=== PATIENT | male | born 1965 | race Caucasian/White ===

== ENCOUNTER 2018-05-25 18:05 | Emergency (ER) | payer OTHER ==
--- NOTE | 2018-05-25 18:44 | ED Physician Documentation ---
PD HPI CHEST PAIN - Stated complaint Stated Complaint: CP/SOA - Chief complaint Chief Complaint: Cardiac - History obtained from History obtained from: Patient - History of Present Illness Timing - onset: Other (Has been fatigued for months, Had w/u with his MD at [facility] and dx low vit D and B12. Has had on and off LUQ pain but severe today with sweats p napping x 1 hr.) Review of Systems Ten Systems: 10 systems reviewed and negative Constitutional: reports: Fatigue. denies: Fever, Chills, Weight Loss Cardiac: reports: Chest pain / pressure. denies: Palpitations Respiratory: denies: Dyspnea, Cough GI: reports: Abdominal Pain. denies: Nausea, Vomiting PD PAST MEDICAL HISTORY - Past Medical History Past Medical History: Yes Cardiovascular: CO Respiratory: None Endocrine/Autoimmune: HyPOthyroidism GI: Diverticulitis : None HEENT: None - Past Surgical History Past Surgical History: Yes General: Bowel surgery, Hiatal hernia repair Ortho: Knee replacement, Rotator cuff repair - Present Medications Home Medications: Ambulatory Orders Medication Instructions Recorded Confirmed Levothyroxine Sodium [Synthroid] 0 mcg PO DAILY 04/21/13 02/23/14 Oxycodone HCl/Acetaminophen 1 - 2 each PO Q6H PRN #15 tablet 02/23/14 [Percocet 5-325 mg Tablet] diazePAM [Valium] 5 - 10 mg PO TID PRN #15 tablet 02/23/14 predniSONE [Deltasone] 60 mg PO DAILY 5 Days tablet 02/23/14 - Allergies Allergies/Adverse Reactions: Allergies Allergy/AdvReac Type Severity Reaction Status Date / Time sulfamethoxazole AdvReac Intermediate Rash Verified 02/23/14 15:30 [From ] trimethoprim [From ] AdvReac Intermediate Rash Verified 02/23/14 15:30 - Social History Does the pt smoke?: Yes Smoking Status: Former smoker Does the pt drink ETOH?: No Does the pt have substance abuse?: Yes - Family History Family history: reports: Non contributory - Immunizations Immunizations are current?: No Immunizations: TDAP >10years/unknown PD ED PE NORMAL - Vitals Vital signs reviewed: Yes - General General: Alert and oriented X 3, No acute distress - HEENT HEENT: PERRL, EOMI - Neck Neck: Supple, no meningeal sign, No bony TTP - Cardiac Cardiac: RRR, No murmur - Respiratory Respiratory: No respiratory distress, Clear bilaterally - Abdomen Abdomen: Normal bowel sounds, Soft, Non tender - Back Back: No CVA TTP, No spinal TTP - Derm Derm: Normal color, Warm and dry - Extremities Extremities: No edema, No calf tenderness / cord - Neuro Neuro: Alert and oriented X 3, Normal speech - Psych Psych: Normal mood, Normal affect Results - Vitals Vitals: Vital Signs - 24 hr 05/25/18 05/25/18 05/25/18 18:08 18:37 20:10 Temperature 36.4 C L Heart Rate 86 88 74 Respiratory 16 18 15 Rate Blood Pressure 150/78 H 121/90 H 114/78 O2 Saturation 100 95 95 Oxygen O2 Source Room air - EKG (time done) 1813 Rate: Rate (enter#) (85) Rhythm: NSR, LAE [place]: Normal Intervals: Normal [place] QRS: Normal Ischemia: Normal ST segments Computer interpretation: Agree with computer - Labs Labs: Laboratory Tests 05/25/18 05/25/18 05/25/18 18:32 18:32 18:32 WBC 7.8 RBC 4.45 L Hgb 15.2 Hct 44.7 MCV 100.5 H MCH 34.2 H MCHC 34.0 RDW 13.8 Plt Count 266 MPV 8.3 Neut # (Auto) 3.9 Lymph # (Auto) 3.1 [place] # (Auto) 0.5 Eos # (Auto) 0.3 Baso # (Auto) 0.0 Absolute Nucleated RBC 0.00 Nucleated RBC % 0.0 Sodium 139 Potassium 4.2 Chloride 108 Carbon Dioxide 23 Anion Gap 8.0 BUN 15 Creatinine 1.3 H Estimated GFR (MDRD) 57 L Glucose 129 H Calcium 9.0 Total Bilirubin 0.3 AST 34 ALT 32 Alkaline Phosphatase 91 Total Creatine Kinase 139 CK-MB (CK-2) 2.8 Troponin I < 0.04 Total Protein 7.3 Albumin 3.9 Globulin 3.4 Albumin/Globulin Ratio 1.1 Lipase 42 05/25/18 20:35 WBC RBC Hgb Hct MCV MCH MCHC RDW Plt Count MPV Neut # (Auto) Lymph # (Auto) [place] # (Auto) Eos # (Auto) Baso # (Auto) Absolute Nucleated RBC Nucleated RBC % Sodium Potassium Chloride Carbon Dioxide Anion Gap BUN Creatinine Estimated GFR (MDRD) Glucose Calcium Total Bilirubin AST ALT Alkaline Phosphatase Total Creatine Kinase CK-MB (CK-2) Troponin I < 0.04 Total Protein Albumin Globulin Albumin/Globulin Ratio Lipase - Rads (name of study) 1v cHEST Radiology: EMP read contemporaneously (NAD) PD MEDICAL DECISION MAKING - ED course ED course: 53-year-old gentleman with left upper quadrant pain today, otherwise somewhat concerning for cardiac etiology but serial biomarkers and EKG are nonischemic. Departure - Departure Disposition: 01 Home, Self Care Clinical Impression: Chest pain Qualifiers: Chest pain type: unspecified Qualified Code(s): R07.9 - Chest pain, unspecified Condition: Good Record reviewed to determine appropriate education?: Yes Instructions: ED Chest Pain NonCardiac Comments: Return for new or worsening symptoms. Follow-up with your physician, discuss stress testing and follow-up.
[2018-05-25 18:53] LABS: BASOPHILS % (AUTO) 0.4 %; EOSINOPHILS # (AUTO) 0.3 10^3/uL (0.0-0.7); EOSINOPHILS % (AUTO) 3.9 %; HGB - HEMOGLOBIN 15.2 g/dL (14.0-18.0); LYMPHOCYTES # (AUTO) 3.1 10^3/uL (1.5-3.5); LYMPHOCYTES % (AUTO) 39.2 %; MEAN CORPUSCULAR HEMOGLOBIN 34.2 pg (27.0-31.0); MEAN CORPUSCULAR VOLUME 100.5 fL (80.0-94.0); MEAN PLATELET VOLUME 8.3 fL (7.4-11.4); MONOCYTES # (AUTO) 0.5 10^3/uL (0.0-1.0); MONOCYTES % (AUTO) 6.5 %; NEUTROPHILS # (AUTO) 3.9 10^3/uL (1.5-6.6); PLT - PLATELET COUNT 266 10^3/uL (130-450); RED BLOOD COUNT 4.45 10^6/uL (4.70-6.10); RED CELL DISTRIBUTION WIDTH 13.8 % (12.0-15.0); WHITE BLOOD COUNT 7.8 x10^3/uL (4.8-10.8)
--- NOTE | 2018-05-25 18:57 | XRAY Report ---
Reason: chest pain Procedure Date: 05/25/2018 Accession Number: [id number] / [id number] Procedure: XR - Chest 1 View X-Ray CPT Code: 02260 FULL RESULT: EXAM: CHEST RADIOGRAPHY EXAM DATE: 05/25/2018 06:27 PM. CLINICAL HISTORY: Chest pain. COMPARISON: CHEST 2 VIEW PA/LAT 04/21/2013 2:31 AM. TECHNIQUE: 1 view. FINDINGS: Lungs/Pleura: No focal opacities evident. No pleural effusion. No pneumothorax. Mediastinum: Within exam limitations, the cardiomediastinal contour is normal. Other: None. IMPRESSION: Normal single view chest. RADIA
[2018-05-25 19:04] LABS: ALBUMIN 3.9 g/dL (3.2-5.5); ALBUMIN/GLOBULIN RATIO 1.1 (1.0-2.2); BILIRUBIN,TOTAL 0.3 mg/dL (0.2-1.0); CREATININE 1.3 mg/dL (0.6-1.2); TOTAL PROTEIN 7.3 g/dL (6.7-8.2); TROPONIN I < 0.04 ng/mL (<0.49)
[2018-05-25 19:08] LABS: CREATINE KINASE MB 2.8 ng/mL (0.6-6.3)
[2018-05-25 21:27] VITALS: BP 123/83
== END 2018-05-25 21:34 | disposition home or self-care (01) ==
LOC: ED 18:05
DX: R07.9 Chest pain, unspecified (principal); R94.31 Abnormal electrocardiogram [ECG] [EKG]; R10.12 Left upper quadrant pain; E03.9 Hypothyroidism, unspecified; Z87.891 Personal history of nicotine dependence
CPT/HCPCS: 36415; 71045; 80053; 82550; 82553; 83690; 84484; 85025; 93005; 99283; 99284

== ENCOUNTER 2018-07-03 13:30 | Outpatient (CLI) | payer OTHER ==
--- NOTE | 2018-07-03 15:05 | CARDIAC PROCEDURE NOTE ---
DATE OF SERVICE: 07/03/2018 Physician: Brii Marin MD, [facility] INDICATION: Chest pain. CARDIAC RISK FACTORS: Male gender, family history of heart disease, hyperlipidemia which is uncontrolled; smoking history, just quit 6 months ago. PROCEDURE: After signing informed consent, the patient underwent a Toney protocol treadmill stress test. There was no imaging ordered with this test. RESTING HEART RATE: 77. PEAK HEART RATE: 140 (85% predicted maximum heart rate for age). RESTING BLOOD PRESSURE: 120/70. PEAK BLOOD PRESSURE: 164/80, and then it went up further in immediate recovery to 170/70. The patient exercised for 6 minutes on a Toney protocol treadmill stress test and then achieved a peak heart rate of 140 (85% PMHR) and 7 METs. He developed moderate shortness of breath at stage I and severe shortness of breath at stage II. Oxygen saturation was 100% on room air, however, at peak. The patient developed none of his typical chest pain during exercise. ELECTROCARDIOGRAM AT REST: Normal sinus rhythm, RSR' in V1 and early R/S transition, consistent with cor pulmonale. ELECTROCARDIOGRAM AT PEAK: [address] depression in lead V3, 2 mm horizontal depressions in V4 through V6. Scooping ST depressions in leads II, III and aVF. These changes resolved after 6 minutes of recovery. SUMMARY 1. Abnormal resting electrocardiogram, consistent with right heart disease. 2. Severe shortness of breath at 85% predicted maximum heart rate for age. 3. Ischemic changes are present by electrocardiogram criteria during treadmill stress testing. 4. No imaging study was ordered with this test. RECOMMENDATIONS: The patient was advised to keep activity light. He will need further evaluation of his abnormal treadmill stress test and significant shortness of breath. TD: 07/03/2018 14:40 MTDZandra
== END 2018-07-03 13:31 | disposition home or self-care (01) ==
LOC: DI 13:30
PROVIDERS: ATTEND Nurse Practitioner Adult Health
DX: R94.31 Abnormal electrocardiogram [ECG] [EKG] (principal); R07.9 Chest pain, unspecified; R06.02 Shortness of breath; E78.5 Hyperlipidemia, unspecified; Z87.891 Personal history of nicotine dependence; Z82.49 Family history of ischemic heart disease and other diseases of the circulatory system
CPT/HCPCS: 93016; 93017; 93018